=== PATIENT | female | born 1970 | race Caucasian/White ===

== ENCOUNTER → 2017-08-19 | Outpatient (CLI) | payer MEDICAID | END | disposition home or self-care (01) | LOC: LABWHC1 17:12 | PROVIDERS: ATTEND Otolaryngology | DX: E03.9 Hypothyroidism, unspecified (principal) | CPT/HCPCS: 36415; 84439; 84443; 86376 ==

== ENCOUNTER → 2018-04-01 | Outpatient (CLI) | payer MEDICAID ==
--- NOTE | 2018-04-01 17:10 | PN ---
PROGRESS NOTE DATE OF SERVICE: 04/01/2018 This patient is a 48-year-old lady has been followed in the sleep center for treatment of obstructive sleep apnea-hypopnea syndrome. Recently the patient had a polysomnogram and CPAP titration, and I discussed the results of her sleep studies with the patient in detail. Subsequently she was started on treatment with CPAP and today is her first visit on CPAP. Recommended CPAP pressure is 9 cm of water, but the patient has difficulties with exhalation to the nasal pillow mask. I checked her CPAP unit. CPAP pressure is 9 cm of water. Usage is 10/29 days, but she never was able to use it for more than 4 hours. Average usage is only 1.3 hours. Leak is 32 L/minute; at the same time, apnea-hypopnea index is only 0.3, which is perfect. Marshall Sleepiness Scale today 14. MEDICATIONS: Levothyroxine. PHYSICAL EXAMINATION: GENERAL: Patient in no distress. VITAL SIGNS: BP 128/72, HR 80, RR 16, height 5 feet 6 inches, weight 217, BMI 35, temperature 98.2, oxygen saturation at room air 100%. HEENT: PERRLA, EOMI. Evaluation of oropharynx showed tongue protrudes midline; low position of soft palate. NECK: Supple. No JVD. Thyroid is not palpable. LUNGS: Clear to percussion and to auscultation. Good air exchange. No wheezing or rhonchi. HEART: S1, S2 regular. No murmurs, gallops or rubs. ABDOMEN: Obese. EXTREMITIES : No clubbing or cyanosis. SCRIPT DEVELOPER: Awake, alert, and oriented X3. Cranial nerves 2 to 7 intact. There is no fasciculation or atrophy. noted. No focal deficits observed. IMPRESSION: 1. Obstructive sleep apnea-hypopnea syndrome; apnea-hypopnea index 13.6, in REM sleep 67.7, under full control with CPAP at 9 cm of water, but patient has difficulties with exhalation through the machine. 2. Obesity. 3. Hypothyroidism. 4. History of vertigo. 5. Status post bilateral lower leg surgery for venous problems. 6. Status post rotator cuff surgery on the right side. 7. Status post section. PLAN: 1. I will adjust pressure in her CPAP unit down to 7 cm of water. 2. Patient has a chinstrap and she will try to use it every night. 3. I do not think that we should change the mask at the present time. She has nasal pillows. 4. Losing weight. 5. No driving if feeling any sleepiness. Thank you very much for allowing me to participate in the management of your patient. Sincerely, Kareem Kang MD, PhD, FAASM Diplomat of [employer] Drama Teacher of [facility] [place] MMODL / JOSUE: [id number] /
== END | disposition home or self-care (01) ==
LOC: SLEEP 15:51
PROVIDERS: ATTEND Internal Medicine
DX: G47.33 Obstructive sleep apnea (adult) (pediatric) (principal); E66.9 Obesity, unspecified; E78.5 Hyperlipidemia, unspecified; R42 Dizziness and giddiness; Z98.890 Other specified postprocedural states; Z99.89 Dependence on other enabling machines and devices; Z68.35 Body mass index [BMI] 35.0-35.9, adult; Z79.899 Other long term (current) drug therapy

== ENCOUNTER 2018-09-10 01:51 | Emergency (ER) | payer MEDICAID ==
[2018-09-10 01:58] VITALS: RESP 16; TEMP 98.3
[2018-09-10 02:54] LABS: Basophils % (A) 0 %; Eosinophils # (A) 0.2 k/uL (0-0.7); Eosinophils % (A) 2 %; HCT 46.2 % (34.0-46.0); HGB 15.2 gm/dL (11.4-16.0); Lymphocytes # (A) 2.7 k/uL (1.0-4.8); Lymphocytes % (A) 27 %; MCH 29.3 pg (25.0-35.0); MCHC 32.9 g/dL (31.0-37.0); MCV 89.1 fL (80.0-100.0); Mean Platelet Volume 6.7; Monocytes # (A) 0.4 k/uL (0-1.0); Monocytes % (A) 4 %; Neutrophils # (A) 6.5 k/uL (1.3-7.7); Neutrophils % (A) 65 %; Platelet Count 397 k/uL (150-450); RBC 5.19 m/uL (3.80-5.40); RDW 13.3 % (11.5-15.5); WBC 9.9 k/uL (3.8-10.6)
[2018-09-10 03:05] LABS: Anion Gap 10 mmol/L; Blood Urea Nitrogen 12 mg/dL (7-17); Calcium 10.2 mg/dL (8.4-10.2); Carbon Dioxide 27 mmol/L (22-30); Chloride 101 mmol/L (98-107); Glucose 89 mg/dL (74-99); Potassium 4.4 mmol/L (3.5-5.1); Sodium 138 mmol/L (137-145)
--- NOTE | 2018-09-10 03:51 | ED ---
Extremity Problem HPI - General Chief complaint: Extremity Problem,Nontraumatic Stated complaint: Calf Pain Time Seen by Provider: 09/10/18 02:11 Source: patient Mode of arrival: ambulatory Limitations: no limitations - History of Present Illness MD Complaint: extremity pain Onset/Timin -: days(s) Location: left, lower extremity History of Same: No -: Yes myalgia Radiation: none Quality: aching Consistency: constant Improves with: nothing Worsens with: other (Tightening her calf) Associated Symptoms: denies other symptoms - Related Data Home Medications Medication Instructions Recorded Confirmed Furosemide [Lasix] 10 mg PO DAILY 04/26/16 04/26/16 Phentermine HCl [Adipex-P] 37.5 mg PO QAM 04/26/16 04/26/16 Previous Rx's Medication Instructions Recorded Cephalexin [Keflex] 500 mg PO Q6HR #36 cap 04/26/16 Cyclobenzaprine [Flexeril] 10 mg PO TID #15 tab 09/10/18 Allergies Allergy/AdvReac Type Severity Reaction Status Date / Time Iodinated Contrast- Oral and Allergy Swelling Verified 09/10/18 01:58 IV Dye [Iodinated Contrast Media - IV Dye] iodine Allergy Swelling Verified 09/10/18 01:58 latex Allergy Rash/Hives Verified 09/10/18 01:58 phenobarbital Allergy Unknown Verified 09/10/18 01:58 Review of Systems ROS Statement: Those systems with pertinent positive or pertinent negative responses have been documented in the HPI. ROS Other: All systems not noted in ROS Statement are negative. Constitutional: Denies: fever, chills, weakness Respiratory: Denies: cough, dyspnea Cardiovascular: Denies: chest pain, palpitations, edema, syncope Gastrointestinal: Denies: abdominal pain Musculoskeletal: Reports: as per HPI, myalgia Skin: Denies: rash Neurological: Denies: weakness, numbness, paresthesias Past Medical History Past Medical History: No Reported History Additional Past Medical History / Comment(s): HX OF SEIZUREA APPROX. 38 YRS AGO (NO MEDS), ENVIRONMENTAL ALLERGIES, HX OF GRAVES DISEASE & HASHIMOTOS-MONITORED BY DR. HE. , STATES IRREGULAR MENSTRUAL PERIODS- MAY HAVE SEVERAL SMALL PERIODS IN A MONTH. History of Any Multi-Drug Resistant Organisms: None Reported Past Surgical History: Section Additional Past Surgical History / Comment(s): NOVASURE., rotator cuff right Past Anesthesia/Blood Transfusion Reactions: Motion Sickness, Postoperative Nausea & Vomiting (PONV) Additional Past Anesthesia/Blood Transfusion Reaction / Comment(s): VERTIGO Past Psychological History: No Psychological Hx Reported Smoking Status: Heavy tobacco smoker Past Alcohol Use History: Rare Past Drug Use History: None Reported - Past Family History Father Family Medical History: Deep Vein Thrombosis (DVT) General Exam Limitations: no limitations General appearance: alert, in no apparent distress Respiratory exam: Present: normal lung sounds bilaterally. Absent: respiratory distress, wheezes, rales, rhonchi, stridor Cardiovascular Exam: Present: regular rate, normal rhythm, normal heart sounds. Absent: systolic murmur, diastolic murmur, rubs, gallop Extremities exam: Present: normal inspection, full ROM, tenderness, normal capillary refill, calf tenderness. Absent: pedal edema Back exam: Present: normal inspection. Absent: CVA tenderness (R), CVA tenderness (L) Skin exam: Present: warm, dry, intact, normal color. Absent: rash Course Vital Signs 09/10/18 01:56 Temperature 98.3 F Pulse Rate 81 Respiratory 16 Rate Blood Pressure 136/80 O2 Sat by Pulse 100 Oximetry Medical Decision Making - Lab Data Result diagrams: 09/10/18 02:46 09/10/18 02:46 Lab Results 09/10/18 09/10/18 09/10/18 Range/Units 02:46 02:46 02:46 WBC 9.9 (3.8-10.6) k/uL RBC 5.19 (3.80-5.40) m/uL Hgb 15.2 (11.4-16.0) gm/dL Hct 46.2 H (34.0-46.0) % MCV 89.1 (80.0-100.0) fL MCH 29.3 (25.0-35.0) pg MCHC 32.9 (31.0-37.0) g/dL RDW 13.3 (11.5-15.5) % Plt Count 397 (150-450) k/uL Neutrophils % 65 % Lymphocytes % 27 % Monocytes % 4 % Eosinophils % 2 % Basophils % 0 % Neutrophils # 6.5 (1.3-7.7) k/uL Lymphocytes # 2.7 (1.0-4.8) k/uL Monocytes # 0.4 (0-1.0) k/uL Eosinophils # 0.2 (0-0.7) k/uL Basophils # 0.0 (0-0.2) k/uL D-Dimer 0.57 (<0.60) mg/L FEU Sodium 138 (137-145) mmol/L Potassium 4.4 (3.5-5.1) mmol/L Chloride 101 (98-107) mmol/L Carbon Dioxide 27 (22-30) mmol/L Anion Gap 10 mmol/L BUN 12 (7-17) mg/dL Creatinine 0.65 (0.52-1.04) mg/dL Est GFR (CKD-EPI)AfAm >90 (>60 ml/min/1.73 sqM) Est GFR (CKD-EPI)NonAf >90 (>60 ml/min/1.73 sqM) Glucose 89 (74-99) mg/dL Calcium 10.2 (8.4-10.2) mg/dL Disposition Clinical Impression: Muscle strain Disposition: HOME SELF-CARE Condition: Good Instructions: Muscle Strain (ED) Prescriptions: Cyclobenzaprine [Flexeril] 10 mg PO TID #15 tab Is patient prescribed a controlled substance at d/c from ED?: No Referrals: Sal He DO [Primary Care Provider] - 1-2 days
[2018-09-10 04:11] VITALS: BP 138/83; PULSE 75
== END 2018-09-10 04:05 | disposition home or self-care (01) ==
LOC: EC 01:51
DX: S86.912A Strain of unspecified muscle(s) and tendon(s) at lower leg level, left leg, initial encounter (principal); F17.200 Nicotine dependence, unspecified, uncomplicated; Z79.899 Other long term (current) drug therapy; Z91.041 Radiographic dye allergy status; Z91.048 Other nonmedicinal substance allergy status; Z91.040 Latex allergy status; Z88.8 Allergy status to other drugs, medicaments and biological substances; X58.XXXA Exposure to other specified factors, initial encounter
CPT/HCPCS: 36415; 80048; 85025; 85379; 99283

== ENCOUNTER → 2018-09-10 | Outpatient (CLI) | payer MEDICAID ==
--- NOTE | 2018-09-10 15:08 | US ---
EXAMINATION TYPE: US venous doppler duplex LE LT DATE OF EXAM: 09/10/2018 2:53 PM COMPARISON: NONE CLINICAL HISTORY: R/O DVT. SIDE PERFORMED: Left TECHNIQUE: The lower extremity deep venous system is examined utilizing real time linear array sonog julissa with graded compression, doppler sonography and color-flow sonography. VESSELS IMAGED: External Iliac Vein (EIV) Common Femoral Vein Deep Femoral Vein Greater Saphenous Vein * Femoral Vein Popliteal Vein Small Saphenous Vein * Proximal Calf Veins (* superficial vessels) Left Leg: Negative for DVT Patient has superficial clot posterior left calf at area of pain. IMPRESSION: 1. Left lower extremity ultrasound negative for deep venous thrombosis. 2. Superficial thrombophlebitis is present on the left lower extremity within the calf level of the p atient's pain.
== END ==
LOC: RADUSWWP 14:25
PROVIDERS: ATTEND Family Medicine
DX: I80.02 Phlebitis and thrombophlebitis of superficial vessels of left lower extremity (principal)

== ENCOUNTER → 2019-12-01 | Outpatient (CLI) | payer MEDICAID ==
[2019-12-01 09:28] LABS: HCT 45.4 % (34.0-46.0); HGB 15.1 gm/dL (11.4-16.0); MCH 29.6 pg (25.0-35.0); MCHC 33.2 g/dL (31.0-37.0); MCV 89.2 fL (80.0-100.0); Mean Platelet Volume 7.8; Platelet Count 474 k/uL (150-450); RBC 5.09 m/uL (3.80-5.40); RDW 12.9 % (11.5-15.5); WBC 8.9 k/uL (3.8-10.6)
[2019-12-01 17:51] LABS: African American GFR (CKD) 100.3 (60.0-200.0); Albumin 4.8 g/dL (3.80-4.90); Albumin/Globulin Ratio 2.29 (1.60-3.17); Anion Gap 8.5 mmol/L (4.00-12.00); BUN/Creat Ratio 12.5 Ratio (12.00-20.00); Calcium 9.8 mg/dL (8.7-10.3); Carbon Dioxide 26.5 mmol/L (21.6-31.8); Chol/HDL Ratio 3.56; Globulin 2.1 g/dL (1.6-3.3); Non-African American GFR(CKD) 86.6 (60.0-200.0); Total Bilirubin 0.4 mg/dL (0.3-1.2); Total Protein 6.9 g/dL (6.2-8.2)
[2019-12-01 18:00] LABS: T4, Free (Free Thyroxine) 1.2 ng/dL (0.80-1.80)
== END | disposition home or self-care (01) ==
LOC: LABWHC1 08:40
PROVIDERS: ATTEND Family Medicine
DX: Z00.00 Encounter for general adult medical examination without abnormal findings (principal); E03.9 Hypothyroidism, unspecified
CPT/HCPCS: 36415; 80053; 80061; 84439; 84443; 85027

== ENCOUNTER → 2020-01-02 | Outpatient (CLI) | payer MEDICAID ==
--- NOTE | 2020-01-02 15:54 | US ---
EXAMINATION TYPE: US venous doppler duplex LE RT DATE OF EXAM: 01/02/2020 3:32 PM COMPARISON: NONE CLINICAL HISTORY: M79.671,M19.071,M79.672,M19.072,M79.661. SIDE PERFORMED: Right TECHNIQUE: The lower extremity deep venous system is examined utilizing real time linear array sonog julissa with graded compression, doppler sonography and color-flow sonography. VESSELS IMAGED: External Iliac Vein (EIV) Common Femoral Vein Deep Femoral Vein Greater Saphenous Vein * Femoral Vein Popliteal Vein Small Saphenous Vein * Proximal Calf Veins (* superficial vessels) Grayscale, color doppler, spectral doppler imaging performed of the deep veins of the right lower ext remity. There is normal flow, compressibility, vascular waveforms. Right Leg: Negative for DVT IMPRESSION: No sonographic evidence of deep venous thrombosis within the right lower extremity.
== END | disposition home or self-care (01) ==
LOC: RADUSWWP 15:10
PROVIDERS: ATTEND Orthopaedic Surgery
DX: M19.071 Primary osteoarthritis, right ankle and foot (principal); I80.9 Phlebitis and thrombophlebitis of unspecified site; M79.672 Pain in left foot; M19.072 Primary osteoarthritis, left ankle and foot; R60.9 Edema, unspecified

== ENCOUNTER → 2020-01-25 | Outpatient (CLI) | payer MEDICAID ==
--- NOTE | 2020-01-25 10:16 | MR ---
EXAMINATION TYPE: MR foot LT wo con DATE OF EXAM: 01/25/2020 COMPARISON: None HISTORY: pain left foot TECHNIQUE: Multiplanar, multisequence images of the left foot were acquired without intravenous contrast. FINDINGS: A few subchondral cysts are seen of the tarsal bones that are subcentimeter and there is very mild marah ne marrow edema of the distal first metatarsal head at the intertarsal phalangeal joint, likely secon ganesh to arthropathy and subchondral cystic change as there is opposing surface sclerosis and very sma ll marginal osteophytes. No other bone marrow edema is seen. There is susceptibility artifact medial to the fifth metatarsophalangeal joint. There is thickening and questionable discontinuity focally of the peroneus brevis just distal to the ankle joint and the short segment of 6 mm. Feel that he is not optimized for evaluation. The flexor t endons and extensor tendons are grossly unremarkable. Ankle mortise maintains normal alignment. Sinus tarsus is unremarkable. Osteophytic spurring is seen of the tarsal bones. The anterior talofibular ligament, posterior talofibular ligament and deltoid li gament are grossly intact. There is a very small tibiotalar joint effusion. The Achilles tendon and p lantar fascia are intact and unremarkable. IMPRESSION: 1. Mild midfoot and forefoot arthropathy with resultant very mild bone marrow edema in distal first m etatarsal head and she likely degenerative osseous cysts. 2. Susceptibility artifact is seen medial to the fifth metatarsophalangeal joint and may be postsurgi rodriguez although correlation with radiographs and prior surgical history are recommended as this alternat ively could represent foreign body. No radiographs for comparison available. 3. At least tendinosis and question short segment split tear of the peroneus brevis just distal to th e ankle joint. 4. Small tibiotalar joint effusion.
== END | disposition home or self-care (01) ==
LOC: RADMRIMAIN 06:00
PROVIDERS: ATTEND Orthopaedic Surgery
DX: M19.072 Primary osteoarthritis, left ankle and foot (principal); M19.071 Primary osteoarthritis, right ankle and foot; M89.9 Disorder of bone, unspecified

== ENCOUNTER → 2020-02-03 | Outpatient (CLI) | payer MEDICAID ==
--- NOTE | 2020-02-03 11:01 | MM ---
Reason for exam: screening (asymptomatic). Last mammogram was performed 9 years and 6 months ago. History: Took hormonal contraceptives for 13 years. Physical Findings: A clinical breast exam by your physician is recommended on an annual basis and results should be correlated with mammographic findings. MG 3D Screening Mammo W/Cad Bilateral CC and MLO view(s) were taken. Prior study comparison: August 15, 2010, bilateral digital screening mammogram. There are scattered fibroglandular densities. Benign appearing bilateral calcifications. No suspicious abnormality. ASSESSMENT: Benign, BI-RAD 2 RECOMMENDATION: Routine screening mammogram of both breasts in 1 year.
== END | disposition home or self-care (01) ==
LOC: RADMAMWWP 08:26
PROVIDERS: ATTEND Family Medicine
DX: Z12.31 Encounter for screening mammogram for malignant neoplasm of breast (principal)
CPT/HCPCS: 77063; 77067

== ENCOUNTER → 2020-07-10 | Outpatient (CLI) | payer MEDICAID ==
--- NOTE | 2020-07-10 08:32 | US ---
EXAMINATION TYPE: US abdomen complete DATE OF EXAM: 07/10/2020 COMPARISON: NONE CLINICAL HISTORY: M54.5 LOW BACK PAIN. Lower back pain exam limited due to body habitus. EXAM MEASUREMENTS: Liver Length: 13.4 cm Gallbladder Wall: .4 cm CBD: .4 cm Spleen: 11.6 cm Right Kidney: 11.8 x 5.3 x 4.4 cm Left Kidney: 10.3 x 4.2 x 4.1 cm Pancreas: Obscured by bowel gas Liver: Limited increased attentuation Gallbladder: Stones visualized Evidence for sonographic Reynaga's sign: No CBD: wnl Spleen: wnl Right Kidney: wnl Left Kidney: wnl Upper IVC: wnl Abd Aorta: wnl IMPRESSION: 1. Nonspecific increased attenuation to the liver can be seen with hepatic steatosis or hepatitis. Co rrelate clinically. 2. Cholelithiasis with mild gallbladder wall thickening can be associated with cholecystitis correlat e clinically. No biliary obstruction.
== END | disposition home or self-care (01) ==
LOC: RADUSWWP 07:49
PROVIDERS: ATTEND Family Medicine
DX: K80.20 Calculus of gallbladder without cholecystitis without obstruction (principal); K82.8 Other specified diseases of gallbladder
CPT/HCPCS: 76700

== ENCOUNTER 2020-09-05 09:04 | Day surgery (SDC) | payer MEDICAID ==
[2020-09-03 15:25] VITALS: BMI 36.0
--- NOTE | 2020-09-05 06:26 | P.GSHP ---
History of Present Illness H&P Date: 09/05/20 CHIEF COMPLAINT: Colon screen HISTORY OF PRESENT ILLNESS: The patient is a 50-year-old female who presents for colon screen. Lower endoscopy was offered for further evaluation and management. PAST MEDICAL HISTORY: Please see list. PAST SURGICAL HISTORY: Please see list. MEDICATIONS: Please see list. ALLERGIES: Please see list. SOCIAL HISTORY: No illicit drug use FAMILY HISTORY: No reports of Crohn disease or ulcerative colitis. REVIEW OF ORGAN SYSTEMS: CONSTITUTIONAL: No reports of fevers or chills. PHYSICAL EXAM: VITAL SIGNS: Stable GENERAL: Well-developed pleasant in no acute distress. HEENT: No scleral icterus. Extraocular movements grossly intact. Moist buccal mucosa. NECK: Supple without lymphadenopathy. CHEST: Unlabored respirations. Equal bilateral excursions. CARDIOVASCULAR: Regular rate and rhythm. Distal 2+ pulses. ABDOMEN: Soft, nontender, nondistended. MUSCULOSKELETAL: No clubbing, cyanosis, or edema. ASSESSMENT: 1. Colon screen. PLAN: 1. Recommend proceeding with a lower endoscopy Past Medical History Past Medical History: No Reported History Additional Past Medical History / Comment(s): currently having nausea and loose stools,HX OF SEIZURE APPROX. 38 YRS AGO (NO MEDS), ENVIRONMENTAL ALLERGIES, HX OF GRAVES DISEASE & HASHIMOTOS-MONITORED BY DR. HE. History of Any Multi-Drug Resistant Organisms: None Reported Past Surgical History: Section, Orthopedic Surgery, Uterine Ablation Additional Past Surgical History / Comment(s): NOVASURE., rotator cuff right Past Anesthesia/Blood Transfusion Reactions: Motion Sickness, Postoperative Nausea & Vomiting (PONV) Additional Past Anesthesia/Blood Transfusion Reaction / Comment(s): VERTIGO Smoking Status: Current every day smoker - Past Family History Mother Family Medical History: COPD, CVA/TIA, Hypertension Father Family Medical History: Deep Vein Thrombosis (DVT) Additional Family Medical History / Comment(s): irreg heartrate Medications and Allergies Home Medications Medication Instructions Recorded Confirmed Type Crestor (Unk Dose) 1 tab PO HS 09/03/20 09/03/20 History Levothyroxine Sodium 112 mcg PO QAM 09/03/20 09/03/20 History Allergies Allergy/AdvReac Type Severity Reaction Status Date / Time Iodinated Contrast Media Allergy Swelling Verified 09/03/20 15:19 [Iodinated Contrast Media - IV Dye] iodine Allergy Swelling Verified 09/03/20 15:19 latex Allergy Rash/Hives Verified 09/03/20 15:19 phenobarbital Allergy Unknown Verified 09/03/20 15:19
[~2020-09-05 09:04] MED LIST: LACTATED RINGERS 1,000 ML IV SCH; LIDOCAINE 1% (10MG/ML) FOR IV START INTRADERMA PRN
[2020-09-05] MEDS ORDERED: PROPOFOL 10 MG/ML 20 ML VIAL IV ONE (09:51)
[2020-09-05 09:53] VITALS: RESP 16; TEMP 98.4
[2020-09-05 10:08] LABS: Basophils # (A) 0.1 k/uL (0-0.2); Basophils % (A) 1 %; Eosinophils # (A) 0.1 k/uL (0-0.7); Eosinophils % (A) 2 %; HCT 46.6 % (34.0-46.0); HGB 15.6 gm/dL (11.4-16.0); Lymphocytes # (A) 1.9 k/uL (1.0-4.8); Lymphocytes % (A) 33 %; MCH 30.1 pg (25.0-35.0); MCHC 33.5 g/dL (31.0-37.0); Mean Platelet Volume 7.5; Monocytes # (A) 0.3 k/uL (0-1.0); Monocytes % (A) 5 %; Neutrophils # (A) 3.3 k/uL (1.3-7.7); Neutrophils % (A) 58 %; Platelet Count 363 k/uL (150-450); RBC 5.18 m/uL (3.80-5.40); RDW 13.4 % (11.5-15.5); WBC 5.6 k/uL (3.8-10.6)
--- NOTE | 2020-09-05 10:17 | P.PCN ---
Date of Procedure: 09/05/20 Description of Procedure: PREOPERATIVE DIAGNOSIS: Colonoscopy screening, first POSTOPERATIVE DIAGNOSIS: Colonoscopy screening, first OPERATION: Colonoscopy to the ascending colon SURGEON: Judy Merrill MD. ANESTHESIA: MAC. INDICATIONS: The patient is a 50-year-old female who presents for her first colonoscopy screening. Benefits and risks were described and informed consent was obtained. DESCRIPTION OF PROCEDURE: The patient had undergone Suprep. She had been brought into the operating room and laid in the left lateral decubitus position. After adequate intravenous sedation, the rectum was examined with 2% lidocaine jelly. No external hemorrhoids were encountered. The rectal tone was within normal limits. No lesions were palpated in the rectal vault. An Olympus colonoscope was advanced to the ascending colon highly redundant colon. Despite abdominal pressure, the scope was limited to the proximal ascending colon without clear visualization of the base of the cecum. The prep was excellent. No scattered diverticulosis was encountered. No colonic polyps were found. No evidence of focal colitis was found. Retroflexion of the scope demonstrated grade 1 internal hemorrhoids without active bleeding or inflammation. The colon was desufflated. The patient had tolerated the procedure well. Withdrawal time was over 6 minutes. FINDINGS: Aronchick preparation quality scale 1 (1-5) Internal hemorrhoids, grade 1 No external prolapsed hemorrhoids. No arteriovenous malformations. No adenomatous polyps. No focal colitis. Colonoscope advanced to the ascending colon without clear visualization of the base of the cecum RECOMMENDATIONS: Will need barium enema for visualization of cecum, otherwise repeat colonoscopy 5 years, 2024 Plan - Discharge Summary Discharge Rx Participant: No New Discharge Prescriptions: Continue Levothyroxine Sodium 112 mcg PO QAM Crestor (Unk Dose) 1 tab PO HS Discharge Medication List Crestor (Unk Dose) 1 tab PO HS 09/03/20 [History] Levothyroxine Sodium 112 mcg PO QAM 09/03/20 [History] Follow up Appointment(s)/Referral(s): Judy Merrill MD [STAFF PHYSICIAN] - 09/18/20 Patient Instructions/Handouts: Colonoscopy (DC) Activity/Diet/Wound Care/Special Instructions: Recommend barium enema for complete assessment of cecum. Otherwise repeat colonoscopy 2024 Discharge Disposition: HOME SELF-CARE
[2020-09-05 10:52] VITALS: BP 123/83; PULSE 73
--- NOTE | 2020-09-05 13:29 | FL ---
EXAMINATION TYPE: FL barium enema DATE OF EXAM: 09/05/2020 COMPARISON: NONE HISTORY: Incomplete colonoscopy TECHNIQUE: A double contrast barium enema study is performed. FINDINGS: Inventory And Pricing Associate view of the abdomen shows overall non-obstructive bowel gas pattern. Some mobile filling defects present within the transverse colon are thought to represent retained sto ol. Cecum shows normal distention and contrast filled image, limited coating on early images, subopti mal distention coated image No evidence of any mass or polyp, obstructing or constricting lesion throughout the colon. No signif icant diverticular disease is noted. Appendix was filled and appeared normal. Diverticula noted in the sigmoid colon The minutes 40 seconds fluoroscopy time, 29 images document the procedure IMPRESSION: Diverticulosis. Some limitations to the exam.
== END 2020-09-05 12:09 | disposition home or self-care (01) ==
LOC: ORWHC2ENDO 09:04
PROVIDERS: ATTEND Surgery Plastic and Reconstructive Surgery
DX: Z12.11 Encounter for screening for malignant neoplasm of colon (principal); K64.0 First degree hemorrhoids; E78.5 Hyperlipidemia, unspecified; E06.3 Autoimmune thyroiditis; K21.9 Gastro-esophageal reflux disease without esophagitis; E05.00 Thyrotoxicosis with diffuse goiter without thyrotoxic crisis or storm; F17.200 Nicotine dependence, unspecified, uncomplicated; Z86.69 Personal history of other diseases of the nervous system and sense organs; Z91.041 Radiographic dye allergy status; Z91.040 Latex allergy status; Z88.8 Allergy status to other drugs, medicaments and biological substances; Z79.890 Hormone replacement therapy; Z79.899 Other long term (current) drug therapy; Z98.891 History of uterine scar from previous surgery; Z98.890 Other specified postprocedural states; Z82.49 Family history of ischemic heart disease and other diseases of the circulatory system; Z82.5 Family history of asthma and other chronic lower respiratory diseases
CPT/HCPCS: 81025; 85025; 74270; J2704; G0121

== ENCOUNTER 2020-09-07 09:33 | Day surgery (SDC) | payer MEDICAID ==
[2020-09-03 14:33] VITALS: BMI 36.0
[~2020-09-07 09:33] MED LIST changes: +DEXAMETHASONE SOD PHOSPHATE 10 MG/ML 1 ML VIAL IV ONE; +HEPARIN SODIUM,PORCINE 5,000 UNIT/ML 1 ML VIAL SQ ONE; +HYDROmorphone 0.5 MG/0.5 ML SYRINGE IVP PRN; +ONDANSETRON 4 MG/2 ML VIAL IVP ONE; +SCOPOLAMINE 1.5MG/72HR PATCH TRANSDERM ONE
[2020-09-07] MEDS ORDERED: ACETAMINOPHEN TAB 500 MG TAB PO STA (10:23)
[2020-09-07] MEDS ORDERED: SCOPOLAMINE 1.5MG/72HR PATCH TRANSDERM STA (10:23)
[2020-09-07] MEDS ORDERED: GABAPENTIN 300 MG CAP PO STA (10:23)
--- NOTE | 2020-09-07 10:24 | P.GSHP ---
History of Present Illness H&P Date: 09/07/20 CHIEF COMPLAINT: Cholecystitis HISTORY OF PRESENT ILLNESS: The patient is a 50-year-old female who presents with history of epigastric including right upper quadrant abdominal pain. She underwent diagnostic studies for her gallbladder. Separately her clinical picture was consistent with cholecystitis. Now she presents for surgical intervention. PAST MEDICAL HISTORY: Please see list PAST SURGICAL HISTORY: Please see list MEDICATIONS: Please see list ALLERGIES: Please see list SOCIAL HISTORY: Please see list FAMILY HISTORY: Please see list REVIEW OF ORGAN SYSTEMS: CONSTITUTIONAL: No reports of fevers or chills. HEENT: Denies any troubles with the vision or hearing. ENDOCRINE: Has hypothyroidism. No diabetes. RESPIRATORY: No recent pneumonias. CARDIOVASCULAR: Denies chest pain or palpitations GI: No blood in stools or constipation. MUSCULOSKELETAL: Has occasional joint pain including back pain. NEURO: No seizure disorders or headaches. No recent stroke. PSYCH: No depression or suicidal ideation. GENITOURINARY: No active blood in urine. No urinary hesitancy. HEMATOLOGIC: No personal or family history of DVTs or pulmonary emboli. SKIN: No skin cancer. PHYSICAL EXAM: VITAL SIGNS: Afebrile vital signs stable GENERAL: Well-developed pleasant in no acute distress. HEENT: No scleral icterus. Extraocular movements grossly intact. Moist buccal mucosa. NECK: Supple without lymphadenopathy. CHEST: Unlabored respirations. Equal bilateral excursions. CARDIOVASCULAR: Regular rate regular rhythm rhythm. Distal 2+ pulses. ABDOMEN: Soft, nondistended. Tender along the epigastrium and right upper quadrant. MUSCULOSKELETAL: No clubbing, cyanosis, or edema. NEURO: Cranial nerves II to XII within normal limits. No focal or lateralizing signs. PSYCH: Alert and oriented to person, place and time. SKIN: Well-perfused good skin turgor. ASSESSMENT: 1. Epigastric and right upper quadrant abdominal pain 2. Chronic cholecystitis PLAN: 1. Will need a robotic cholecystectomy possible open. Benefits and risks were described. 2. Heparin for DVT prophylaxis 5000 units. 3. Antibiotic prophylaxis. Past Medical History Past Medical History: No Reported History Additional Past Medical History / Comment(s): currently having nausea and loose stools,HX OF SEIZURE APPROX. 38 YRS AGO (NO MEDS), ENVIRONMENTAL ALLERGIES, HX OF GRAVES DISEASE & HASHIMOTOS-MONITORED BY DR. HE. History of Any Multi-Drug Resistant Organisms: None Reported Past Surgical History: Section, Orthopedic Surgery, Uterine Ablation Additional Past Surgical History / Comment(s): NOVASURE., rotator cuff right Past Anesthesia/Blood Transfusion Reactions: Motion Sickness, Postoperative Nausea & Vomiting (PONV) Additional Past Anesthesia/Blood Transfusion Reaction / Comment(s): VERTIGO Smoking Status: Current every day smoker - Past Family History Mother Family Medical History: COPD, CVA/TIA, Hypertension Father Family Medical History: Deep Vein Thrombosis (DVT) Additional Family Medical History / Comment(s): irreg heartrate Medications and Allergies Home Medications Medication Instructions Recorded Confirmed Type Crestor (Unk Dose) 1 tab PO HS 09/03/20 09/07/20 History Levothyroxine Sodium 112 mcg PO QAM 09/03/20 09/07/20 History Allergies Allergy/AdvReac Type Severity Reaction Status Date / Time Iodinated Contrast Media Allergy Swelling Verified 09/07/20 10:18 [Iodinated Contrast Media - IV Dye] iodine Allergy Swelling Verified 09/07/20 10:18 latex Allergy Rash/Hives Verified 09/07/20 10:18 phenobarbital Allergy Unknown Verified 09/07/20 10:18 Surgical - Exam Vital Signs Temp Pulse Resp BP Pulse Ox 97.6 F 84 16 158/76 98 09/07/20 10:00 09/07/20 10:00 09/07/20 10:00 09/07/20 10:00 09/07/20 10:00
[2020-09-07] MEDS ORDERED: NEOSTIGMINE 1 MG/ML 10 ML VIAL ONE (10:40)
[2020-09-07] MEDS ORDERED: PROPOFOL 10 MG/ML 20 ML VIAL IV ONE (10:40)
[2020-09-07] MEDS ORDERED: LIDOCAINE 1% INJ 10MG/ML (20 ML MDV) ONE (10:40)
[2020-09-07] MEDS ORDERED: diphenhydrAMINE 50 MG/ML 1 ML VIAL ONE (10:40)
[2020-09-07] MEDS ORDERED: MIDAZOLAM 2 MG/2 ML VIAL ONE (10:40)
[2020-09-07] MEDS ORDERED: KETOROLAC 15 MG/ML 1 ML VIAL ONE (10:40)
[2020-09-07] MEDS ORDERED: SUCCINYLCHOLINE CHLORIDE 100 MG/5 ML SYR IV ONE (10:40)
[2020-09-07] MEDS ORDERED: ROCURONIUM 10 MG/ML (10 ML VIAL) IV ONE (10:40)
[2020-09-07] MEDS ORDERED: GLYCOPYRROLATE 0.2 MG/ML 2 ML VIAL ONE (10:40)
[2020-09-07] MEDS ORDERED: HYDROmorphone (PF) 1 MG/ML ONE (10:40)
[2020-09-07] MEDS ORDERED: fentaNYL (PF) 50 MCG/ML 2 ML AMP ONE (10:40)
[2020-09-07] MEDS ORDERED: BUPIVACAINE (PF) 0.25% 30 ML VIAL SQ ONE (11:02)
[2020-09-07 12:02] VITALS: TEMP 97.8
--- NOTE | 2020-09-07 12:08 | P.OP ---
Date of Procedure: 09/07/20 Description of Procedure: SURGEON: JUDY MERRILL MD PREOPERATIVE DIAGNOSES: 1. Symptomatic gallstone 2. Right upper quadrant abdominal pain 3. Hypothyroidism 4. Morbid obesity due to excess calories, BMI of 40 POSTOPERATIVE DIAGNOSES: 1. Symptomatic gallstone 2. Right upper quadrant abdominal pain 3. Hypothyroidism 4. Morbid obesity due to excess calories, BMI of 40 5. Peritoneal adhesions, right upper quadrant OPERATION: 1. Robotic-assisted da Joana Xi laparoscopic lysis of adhesions 2. Robotic-assisted da Joana Xi laparoscopic cholecystectomy, multiport with FIREFLY ESTIMATED BLOOD LOSS: 5 mL. SPECIMENS REMOVED: Gallbladder. COMPLICATIONS: None. OPERATIVE FINDINGS: 1. Moderate scarring along right upper quadrant of omentum to abdominal wall requiring and some lysis of adhesions 2. Large gallstone over 2 cm INDICATIONS: The patient is a 50-year-old female who presents with symptomatic gallstones. Robotic assisted laparoscopic approach was described. Benefits and risks of the procedure including but not limited to bleeding, infection, injury to the biliary tree was described. Informed consent was obtained. DESCRIPTION OF PROCEDURE: Patient was brought to the operating room, placed in supine position. After general induction, the abdomen had been prepped and draped in standard sterile fashion. The robotic da Joana XI system was primed. After a timeout protocol was performed, the patient had been prepped and draped in standard sterile fashion. The patient was injected with indocyanine green. A 5 mm 0 degrees laparoscopic trocar entry was performed along the left upper quadrant. The abdomen insufflated to 15 mmHg pressure which was tolerated well. Diagnostic laparoscopy demonstrated no injury to bowel viscera or mesentery. The liver surface was unremarkable. Next, two 8 mm robotic ports were placed along the right upper abdomen. The camera 8-mm port was maintained along the epigastrium. Another 8 mm port was placed along the left upper abdominal wall after exchanging the 5 mm port. Please note that the ports were placed at least 10 to 15 cm away from the target anatomy of the gallbladder. The robot was docked along the left lateral abdomen. The patient was repositioned in reverse Trendelenburg position. Using a grasper for arm 3, a grasper for arm 4, including hook cautery for arm 1, the robotic system was docked and primed as described. Instruments were interchanged by the assistant reading teacher including hook cautery, Bovie cautery and clip appliers. I had sat at the console. Peritoneal adhesions were identified of omentum to the abdominal wall. Lysis of adhesions was performed using vessel sealer. Next attention was brought to the infundibulum and cystic structures. The infundibulum and cystic duct were dissected free from surrounding tissues. The cystic duct was isolated. FIREFLY was used to identify the cystic artery and cystic structures. A critical view of safety was obtained. Large PLASTIC clips were used throughout the entire case. Using a clip facer operator, 2 clips were placed at the junction of the infundibulum and cystic duct. The cystic duct was divided between clips. Next, the cystic artery was similarly clipped and cauterized. Electro-Bovie cautery was used to remove the gallbladder from the hepatic fossa. Hemostasis was checked and found to be adequate. The robot was undocked. I re-scrubbed into the case. Using a 10 mm Endo Catch bag via the left upper quadrant incision, the specimen was removed from the abdominal cavity. All pneumoperitoneum instruments were evacuated from the abdominal cavity. The incisions were reapproximated using 4-0 Monocryl in an interrupted subcuticular fashion. Fascial defects were less than 8 mm in size. Please note along the trocar sites, local anesthetic was placed as a field block prior to insertion of all instruments. Liquid glue was applied to the skin. At the end of the procedure needle, sponge, and instrument count had been verified correct by the marine engineering technicians. The patient was transferred to postanesthesia care unit in stable condition. Intraoperative films were shared with the patient's family. Plan - Discharge Summary Discharge Rx Participant: No New Discharge Prescriptions: New Acetaminophen Tab [Tylenol Tab] 1,000 mg PO Q6HR PRN #30 tablet PRN Reason: Pain Naproxen [Naprosyn] 250 mg PO TID PRN #30 tab PRN Reason: Pain Continue Levothyroxine Sodium 112 mcg PO QAM Crestor (Unk Dose) 1 tab PO HS Discharge Medication List Crestor (Unk Dose) 1 tab PO HS 09/03/20 [History] Levothyroxine Sodium 112 mcg PO QAM 09/03/20 [History] Acetaminophen Tab [Tylenol Tab] 1,000 mg PO Q6HR PRN #30 tablet 09/07/20 [Rx] Naproxen [Naprosyn] 250 mg PO TID PRN #30 tab 09/07/20 [Rx] Follow up Appointment(s)/Referral(s): Judy Merrill MD [STAFF PHYSICIAN] - 09/18/20 Patient Instructions/Handouts: *[facility] - Laparoscopic Cholecystectomy Discharge Instructions, *[facility] - (Anesthesia) Discharge Instructions Outpatient Surgery, *[facility] - Scopalamine Patch Instructions, *[facility] - Managing Your Pain After Surgery Without Opioids Activity/Diet/Wound Care/Special Instructions: No lifting over 10 pounds in 2 weeks until Sep 21. May shower. No bath tub soaks for two weeks until Sep 21 Diet as tolerated. Use Tylenol and ibuprofen/Aleve scheduled for the next 24-48 hours for best pain relief. Use ice along incisions for the today to prevent swelling. Discharge Disposition: HOME SELF-CARE
[2020-09-07] MEDS ORDERED: SIMETHICONE 80 MG CHEWABLE PO SCH (12:15)
[2020-09-07 13:09] VITALS: RESP 20
[2020-09-07 13:34] VITALS: BP 166/70; PULSE 64
== END 2020-09-07 14:13 | disposition home or self-care (01) ==
LOC: OR 09:33
PROVIDERS: ATTEND Surgery Plastic and Reconstructive Surgery
DX: K80.10 Calculus of gallbladder with chronic cholecystitis without obstruction (principal); E03.9 Hypothyroidism, unspecified; K66.0 Peritoneal adhesions (postprocedural) (postinfection); E66.01 Morbid (severe) obesity due to excess calories; Z68.41 Body mass index [BMI] 40.0-44.9, adult; E05.00 Thyrotoxicosis with diffuse goiter without thyrotoxic crisis or storm; E06.3 Autoimmune thyroiditis; F17.210 Nicotine dependence, cigarettes, uncomplicated; Z86.718 Personal history of other venous thrombosis and embolism; I49.9 Cardiac arrhythmia, unspecified; Z97.2 Presence of dental prosthetic device (complete) (partial); Z98.891 History of uterine scar from previous surgery; Z98.890 Other specified postprocedural states; Z79.890 Hormone replacement therapy; Z79.899 Other long term (current) drug therapy; Z82.49 Family history of ischemic heart disease and other diseases of the circulatory system; Z82.5 Family history of asthma and other chronic lower respiratory diseases; Z91.041 Radiographic dye allergy status; Z91.040 Latex allergy status; Z88.8 Allergy status to other drugs, medicaments and biological substances; Z91.048 Other nonmedicinal substance allergy status
CPT/HCPCS: 88304; 47563; J2250; J1200; J1644; J1100; J2710; J0690; J2405; J2001; J3010; J1170; J1885; J0330; J2704

== ENCOUNTER 2020-10-21 07:43 | Emergency (ER) | payer MEDICAID, OTHER ==
[2020-10-21 07:48] VITALS: TEMP 97.8
--- NOTE | 2020-10-21 08:11 | ED ---
General Adult HPI - General Chief complaint: Needlestick/Exposure Stated complaint: [facility] - needlestick Time Seen by Provider: 10/21/20 07:51 Source: patient, RN notes reviewed Mode of arrival: ambulatory Limitations: no limitations - History of Present Illness Initial comments: Patient is a pleasant 50-year-old female presenting to the emergency Department with abrasion to her right hand. Patient was changing the garbage at the hospital here when the stylette use for a chest tube abraded her right palm. Patient did wash the area thoroughly. Tetanus immune patient is up-to-date. Patient only has mild discomfort. No other area of injury or concern. - Related Data Home Medications Medication Instructions Recorded Confirmed Crestor (Unk Dose) 1 tab PO HS 09/03/20 09/07/20 Levothyroxine Sodium 112 mcg PO QAM 09/03/20 09/07/20 Previous Rx's Medication Instructions Recorded Acetaminophen Tab [Tylenol Tab] 1,000 mg PO Q6HR PRN #30 tablet 09/07/20 Naproxen [Naprosyn] 250 mg PO TID PRN #30 tab 09/07/20 Allergies Allergy/AdvReac Type Severity Reaction Status Date / Time Iodinated Contrast Media Allergy Swelling Verified 10/21/20 07:48 [Iodinated Contrast Media - IV Dye] iodine Allergy Swelling Verified 10/21/20 07:48 latex Allergy Rash/Hives Verified 10/21/20 07:48 phenobarbital Allergy Unknown Verified 10/21/20 07:48 Review of Systems ROS Statement: Those systems with pertinent positive or pertinent negative responses have been documented in the HPI. ROS Other: All systems not noted in ROS Statement are negative. Constitutional: Denies: fever Eyes: Denies: eye pain ENT: Denies: ear pain Respiratory: Denies: cough, dyspnea Cardiovascular: Denies: chest pain, palpitations Endocrine: Denies: fatigue Gastrointestinal: Denies: abdominal pain Genitourinary: Denies: dysuria Musculoskeletal: Denies: back pain Skin: Reports: as per HPI Past Medical History Past Medical History: Hyperlipidemia, Thyroid Disorder Additional Past Medical History / Comment(s): currently having nausea and loose stools,HX OF SEIZURE APPROX. 38 YRS AGO (NO MEDS), ENVIRONMENTAL ALLERGIES, HX OF GRAVES DISEASE & HASHIMOTOS-MONITORED BY DR. HE. History of Any Multi-Drug Resistant Organisms: None Reported Past Surgical History: Section, Cholecystectomy, Orthopedic Surgery, Uterine Ablation Additional Past Surgical History / Comment(s): NOVASURE., rotator cuff right Past Anesthesia/Blood Transfusion Reactions: Motion Sickness, Postoperative Nausea & Vomiting (PONV) Additional Past Anesthesia/Blood Transfusion Reaction / Comment(s): VERTIGO Past Psychological History: No Psychological Hx Reported Smoking Status: Current every day smoker Past Alcohol Use History: None Reported Past Drug Use History: None Reported - Past Family History Mother Family Medical History: COPD, CVA/TIA, Hypertension Father Family Medical History: Deep Vein Thrombosis (DVT) Additional Family Medical History / Comment(s): irreg heartrate General Exam Limitations: no limitations General appearance: alert, in no apparent distress Head exam: Present: normocephalic Eye exam: Present: normal appearance Respiratory exam: Present: normal lung sounds bilaterally Cardiovascular Exam: Present: regular rate, normal rhythm GI/Abdominal exam: Present: soft. Absent: tenderness Extremities exam: Present: normal inspection Neurological exam: Present: alert Psychiatric exam: Present: normal affect, normal mood Skin exam: Present: abrasion (Right palm near the thenar eminence with approximately 1 cm abrasion) Course Vital Signs 10/21/20 07:45 Temperature 97.8 F Pulse Rate 77 Respiratory 16 Rate Blood Pressure 119/79 O2 Sat by Pulse 99 Oximetry Medical Decision Making - Medical Decision Making Lab is refusing to run source rapid HIV despite being directed to and management getting involved. Patient is made aware of this and instructed to follow-up with employee health tomorrow. Patient is felt to be extremely low risk a central mechanism of injury. Patient is comfortable with discharge home. Disposition Clinical Impression: Hand abrasion Disposition: HOME SELF-CARE Instructions (If sedation given, give patient instructions): Abrasion (ED), Needle Stick Injuries (ED) Additional Instructions: Keep area clean and dry. Keep area protected at work. Please follow-up with employee health tomorrow for further results and recommendations. Return for illness, hand problems, worsening symptoms or other concerns. Is patient prescribed a controlled substance at d/c from ED?: No Referrals: Sal He DO [Primary Care Provider] - 1-2 days Time of Disposition: 10:45
[2020-10-21 10:52] VITALS: BP 135/74; PULSE 70; RESP 18
== END 2020-10-21 10:50 | disposition home or self-care (01) ==
LOC: EC 07:43
DX: S60.511A Abrasion of right hand, initial encounter (principal); E78.5 Hyperlipidemia, unspecified; E07.9 Disorder of thyroid, unspecified; E06.3 Autoimmune thyroiditis; F17.200 Nicotine dependence, unspecified, uncomplicated; Z79.890 Hormone replacement therapy; Z79.899 Other long term (current) drug therapy; Z91.040 Latex allergy status; Z91.041 Radiographic dye allergy status; Z91.048 Other nonmedicinal substance allergy status; Z88.8 Allergy status to other drugs, medicaments and biological substances; Z98.890 Other specified postprocedural states; W46.0XXA Contact with hypodermic needle, initial encounter; Y92.69 Other specified industrial and construction area as the place of occurrence of the external cause; Y99.0 Civilian activity done for income or pay
CPT/HCPCS: 99282

== ENCOUNTER 2023-03-06 08:34 | Day surgery (SDC) | payer BC, MEDICAID ==
[~2023-03-06 08:34] MED LIST changes: -DEXAMETHASONE SOD PHOSPHATE 10 MG/ML 1 ML VIAL IV ONE; +DEXAMETHASONE SOD PHOSPHATE 4 MG/ML 1 ML VIAL IV ONE; -HEPARIN SODIUM,PORCINE 5,000 UNIT/ML 1 ML VIAL SQ ONE; -LIDOCAINE 1% (10MG/ML) FOR IV START INTRADERMA PRN; +MIDAZOLAM 2 MG/2 ML VIAL IV PRN; +SCOPOLAMINE 1 MG/72 HR PATCH TRANSDERM ONE; -SCOPOLAMINE 1.5MG/72HR PATCH TRANSDERM ONE
[2023-03-06] MEDS ORDERED: MIDAZOLAM 2 MG/2 ML VIAL IVP ONE (09:27)
[2023-03-06 09:37] VITALS: RESP 16
--- NOTE | 2023-03-06 09:39 | P.ANPRN ---
Procedure Note - Anesthesia - Nerve Block Performed Left Popliteal Single Time Out Performed: Yes ([id number]) Date of Procedure: 03/06/23 Procedure Start Time: : Procedure Stop Time: : Location of Patient: PreOp Indication: Acute Post-Operative Pain, Requested by Surgeon Sedation Type: Sedate with meaningful contact maintained Preparation: Sterile Prep, Sterile Dressing Position: Right Lateral Catheter: None Needle Types: Pajunk Needle Gauge: 21 Ultrasound used to visualize needle placement: Yes Ultrasound used to observe medication spread: Yes Injectate: 0.5% Ropivacaine (see comment for volume) (21ml of block solution containing 20 ML of 0.5% ropivacaine mixed with 4 of dexamethasone) Blood Aspirated: No Pain Paresthesia on Injection Noted: No Resistance on Injection: Normal Image Stored and Saved: Yes Events: Uneventful and Well Tolerated
[2023-03-06] MEDS ORDERED: PROPOFOL 10 MG/ML 20 ML VIAL IV ONE (10:47)
[2023-03-06] MEDS ORDERED: LIDOCAINE 2% INJ 20 MG/ML (2 ML VIAL) ONE (10:47)
[2023-03-06] MEDS ORDERED: MIDAZOLAM 2 MG/2 ML VIAL ONE (10:47)
[2023-03-06] MEDS ORDERED: fentaNYL (PF) 50 MCG/ML 2 ML AMP ONE (10:47)
[2023-03-06] MEDS ORDERED: SODIUM CHLORIDE 0.9% (PF) 10 ML VIAL ONE (10:47)
[2023-03-06] MEDS ORDERED: DEXAMETHASONE SOD PHOSPHATE 4 MG/ML 1 ML VIAL ONE (10:47)
[2023-03-06] MEDS ORDERED: ROPIVACAINE 5 MG/ML 30 ML VIAL ONE (10:47)
[2023-03-06] MEDS ORDERED: PHENYLEPHRINE-0.9% NACL SYG 1,000 MCG/10 ML SYRINGE ONE (10:47)
--- NOTE | 2023-03-06 11:36 | P.OP ---
Date of Procedure: 03/06/23 Preoperative Diagnosis: Displaced fifth metatarsal fracture left foot Postoperative Diagnosis: Same Procedure(s) Performed: Open reduction with internal fixation left fifth metatarsal fracture Implants: 4.5 mm x 45 mm [facility] Stokes' fracture screw Anesthesia: ALEXY Surgeon: Truman White Estimated Blood Loss (ml): 0 Pathology: none sent Condition: stable Disposition: PACU Description of Procedure: Prior to the patient being brought to the operative room, anesthesia administered a nerve block and left lower extremity. The patient was then brought into the operating room and placed on table supine position. Timeout was taken to confirm correct patient identifiers, correct laterality of surgery, and correct procedure. Once all staff in the room were in agreement with the timeout, the patient was induced and placed under general anesthesia. A well- padded tourniquet was placed on the left ankle and then the left foot was prepped and draped in usual manner. The left foot was exsanguinated and the tourniquet inflated to 250 mmHg. Utilizing fluoroscopic guidance a metallic marker was used to for incision planning. The markers placed approximately 2 cm proximal to the fifth metatarsal base. A small linear incision was made and bluntly dissected through the soft tissue to the base of the fifth metatarsal. The guidewire utilized for the drill and tap was then placed at the tip of the styloid process of the fifth metatarsal. It was slowly advanced to the base until the wire was near the fracture site. Fluoroscopy was then used to confirm that the wire place was in the medullary canal both on the AP, oblique,and lateral views. Once that was confirmed the wire was in the proper position, it was advanced to secondary curvature. Again fluoroscopy was used to confirm that the wire was in proper position. Drilling was then performed to the end of the wire. Depth gauge determined that a 45 mm screw would be appropriate. The tap was inserted and tapped to the into the wire. The tap wire were removed and then the screw inserted and advanced until the head engaged the cortex of the proximal fifth metatarsal and the threads were distal to the fracture line. Final fluoroscopic imaging showed that the screw was well positioned and the medullary canal both on the AP, oblique and lateral views. The wound is thoroughly irrigated with antibiotic saline. The skin was closed with 3-0 nylon. Nonadherent gauze and a dry sterile dressing were applied to left foot. The tourniquet was released and capillary refill return to all digits on the left foot. The patient was then placed in a fracture boot with ankle neutral position. Anesthesia was reversed and the patient was taken recovery with vital signs stable.
[2023-03-06 11:41] VITALS: TEMP 97
[2023-03-06 13:21] VITALS: BP 132/77; PULSE 68
== END 2023-03-06 13:31 | disposition home or self-care (01) ==
LOC: OR 08:34
PROVIDERS: ATTEND Podiatrist
DX: S92.352A Displaced fracture of fifth metatarsal bone, left foot, initial encounter for closed fracture (principal); G89.18 Other acute postprocedural pain; F17.200 Nicotine dependence, unspecified, uncomplicated; G40.909 Epilepsy, unspecified, not intractable, without status epilepticus; K21.9 Gastro-esophageal reflux disease without esophagitis; Z88.5 Allergy status to narcotic agent; Z88.8 Allergy status to other drugs, medicaments and biological substances; Z91.040 Latex allergy status; Z68.33 Body mass index [BMI] 33.0-33.9, adult; Z90.49 Acquired absence of other specified parts of digestive tract; Z98.890 Other specified postprocedural states
CPT/HCPCS: 28485; 64450; J2250; J1100; J0690; J2405

== ENCOUNTER → 2023-03-12 | Outpatient (CLI) | payer BC ==
--- NOTE | 2023-03-12 11:21 | US ---
EXAMINATION TYPE: US venous doppler duplex LE LT DATE OF EXAM: 03/12/2023 10:30 AM COMPARISON: NONE CLINICAL HISTORY: I80.9 PHLEBITIS AND THROMBOPHLEBITIS OF UNSPECIFIE. left leg pain SIDE PERFORMED: Left TECHNIQUE: The lower extremity deep venous system is examined utilizing real time linear array sonog julissa with graded compression, doppler sonography and color-flow sonography. VESSELS IMAGED: Common Femoral Vein Deep Femoral Vein Greater Saphenous Vein * Femoral Vein Popliteal Vein Small Saphenous Vein * Proximal Calf Veins (* superficial vessels) Left Leg: Positive for DVT Popliteal Vein IMPRESSION: Positive deep vein tendinosis of the left popliteal vein. Ordering provider was notified.
== END | disposition home or self-care (01) ==
LOC: RADUSWWP 10:28
PROVIDERS: ATTEND Podiatrist
DX: S92.355D Nondisplaced fracture of fifth metatarsal bone, left foot, subsequent encounter for fracture with routine healing (principal); I82.432 Acute embolism and thrombosis of left popliteal vein; F17.210 Nicotine dependence, cigarettes, uncomplicated; Z48.89 Encounter for other specified surgical aftercare

== ENCOUNTER 2023-04-25 15:02 | Observation (INO) | payer BC ==
[2023-04-25] MEDS ORDERED: diphenhydrAMINE 50 MG/ML 1 ML VIAL IVP STA (15:40)
[2023-04-25] MEDS ORDERED: methylPREDNISolone SOD SUCCI 125 MG/2 ML VIAL IV STA (15:40)
[2023-04-25] MEDS ORDERED: FAMOTIDINE 20 MG/2 ML VIAL IV STA (15:40)
--- NOTE | 2023-04-25 15:45 | ED ---
General Adult HPI - General Chief complaint: Extremity Problem,Nontraumatic Stated complaint: Pain in left leg Time Seen by Provider: 04/25/23 15:17 Source: patient, RN notes reviewed Mode of arrival: ambulatory Limitations: no limitations - History of Present Illness Initial comments: Patient is a pleasant 53-year-old female presenting to the emergency department with concern with left Swelling and discomfort. Onset of symptoms was a past few days. Patient does have history of DVT just over a month ago following orthopedic procedure. Patient did finish her started back about this and has been off this for almost 2 weeks. Patient states discomfort is somewhat similar however does feel a little bit higher. Patient questions if she may be slightly short of breath. He should states she has had some increased stress however and wonders if it is just related to that. No chest pain. No fever. - Related Data Home Medications Medication Instructions Recorded Confirmed Ibuprofen [Motrin] 800 mg PO Q8HR PRN 03/06/23 03/06/23 Levothyroxine Sodium [Synthroid] 112 mcg PO DAILY 03/06/23 03/06/23 Previous Rx's Medication Instructions Recorded Acetaminophen Tab [Tylenol Tab] 1,000 mg PO Q6HR PRN #30 tablet 09/07/20 HYDROcodone/APAP 5-325MG [Morning Sun 1 tab PO Q6HR PRN #14 tab 03/06/23 5-325] Allergies Allergy/AdvReac Type Severity Reaction Status Date / Time Iodinated Contrast Media Allergy Swelling Verified 04/25/23 15:15 [Iodinated Contrast Media - IV Dye] iodine Allergy Swelling Verified 04/25/23 15:15 latex Allergy Rash/Hives Verified 04/25/23 15:15 phenobarbital Allergy Unknown Verified 04/25/23 15:15 Review of Systems ROS Statement: Those systems with pertinent positive or pertinent negative responses have been documented in the HPI. ROS Other: All systems not noted in ROS Statement are negative. Constitutional: Denies: fever, chills Eyes: Denies: eye pain ENT: Denies: ear pain Respiratory: Reports: as per HPI Cardiovascular: Denies: chest pain Endocrine: Denies: as per HPI Genitourinary: Denies: dysuria Skin: Reports: as per HPI Past Medical History Past Medical History: Deep Vein Thrombosis (DVT), Hyperlipidemia, Thyroid Disorder Additional Past Medical History / Comment(s): ,HX OF SEIZURE APPROX. 38 YRS AGO (NO MEDS), ENVIRONMENTAL ALLERGIES, HX OF GRAVES DISEASE & HASHIMOTOS-MONITORED BY DR. HE. History of Any Multi-Drug Resistant Organisms: None Reported Past Surgical History: Section, Cholecystectomy, Orthopedic Surgery, Uterine Ablation Additional Past Surgical History / Comment(s): NOVASURE., rotator cuff right Past Anesthesia/Blood Transfusion Reactions: Motion Sickness, Postoperative Nausea & Vomiting (PONV) Additional Past Anesthesia/Blood Transfusion Reaction / Comment(s): VERTIGO. no blood tx hx Past Psychological History: No Psychological Hx Reported Smoking Status: Current every day smoker Past Alcohol Use History: None Reported Past Drug Use History: None Reported - Past Family History Mother Family Medical History: COPD, CVA/TIA, Hypertension Father Family Medical History: Deep Vein Thrombosis (DVT) Additional Family Medical History / Comment(s): irreg heartrate General Exam Limitations: no limitations General appearance: alert, in no apparent distress Head exam: Present: normocephalic Eye exam: Present: normal appearance Neck exam: Present: normal inspection Respiratory exam: Present: normal lung sounds bilaterally. Absent: respiratory distress Cardiovascular Exam: Present: regular rate, normal rhythm Expanded Peripheral pulses: 2+: Posterior Tibialis (R), Posterior Tibialis (L), Dorsalis Pedis (R), Dorsalis Pedis (L) GI/Abdominal exam: Present: soft. Absent: tenderness Extremities exam: Present: calf tenderness (Mild left sided as well as mild left lower hamstring region), other (Minimal left calf swelling) Neurological exam: Present: alert. Absent: motor sensory deficit Psychiatric exam: Present: normal affect, normal mood Skin exam: Present: normal color Course Vital Signs 04/25/23 04/25/23 15:09 18:43 Temperature 98.8 F Pulse Rate 97 84 Respiratory 20 18 Rate Blood Pressure 151/98 143/86 O2 Sat by Pulse 100 98 Oximetry EKG Findings - EKG Results: EKG: interpreted by ERMD, sinus rhythm, normal axis, normal QRS, normal ST/T Medical Decision Making - Medical Decision Making Was pt. sent in by a medical professional or institution (, PA, KNITTING TEACHER, urgent care, hospital, or care home...) When possible be specific @ -No Did you speak to anyone other than the patient for history (EMS, parent, family, police, friend...)? What history was obtained from this source @ -Family is present and helps provide history including recent surgery Did you review nursing and triage notes (agree or disagree)? Why? @ -I reviewed and agree with nursing and triage notes Were old charts reviewed (outside hosp., previous admission, EMS record, old EKG, old radiological studies, urgent care reports/EKG's, care home records)? Report findings @ -Previous ultrasound report reviewed Differential Diagnosis (chest pain, altered mental status, abdominal pain women, abdominal pain men, vaginal bleeding, weakness, fever, dyspnea, syncope, headache, dizziness, GI bleed, back pain, seizure, CVA, palpatations, mental health)? @ -Differential Dyspnea: Coronary syndrome, arrhythmia, tamponade, asthma, COPD, pulmonary embolism, p neumonia, pneumothorax, pulmonary effusion, anaphylaxis, diabetic ketoacidosis, flailed chest, pulmonary contusion, diaphragmatic rupture, anemia, neuromuscular, this is not meant to be an all-inclusive list. EKG interpreted by me (3pts min.). @ -As above X-rays interpreted by me (1pt min.). @ -None done CT interpreted by me (1pt min.). @ -Report reviewed. Case was discussed with radiologist U/S interpreted by me (1pt. min.). @ -For reviewed. Case was discussed with radiologist What testing was considered but not performed or refused? (CT, X-rays, U/S, labs)? Why? @ -None What meds were considered but not given or refused? Why? @ -None Did you discuss the management of the patient with other professionals (professionals i.e. , PA, KNITTING TEACHER, lab, RT, psych nurse, social media intern, land planner, teacher, mail officer, case consultant)? Give summary @ -I did discuss radiology findings with both radiologist. I also discuss case with Dr. Diego who will admit coming Dr. He. I did also discuss the case with Dr. Phillips will consult with pulmonary. Was smoking cessation discussed for >3mins.? @ -No Was critical care preformed (if so, how long)? @ -30 minutes critical care time Were there social determinants of health that impacted care today? How? (Homelessness, low income, unemployed, alcoholism, drug addiction, transportation, low edu. Level, literacy, decrease access to med. care, halfway, rehab)? @ -No Was there de-escalation of care discussed even if they declined (Discuss DNR or withdrawal of care, Hospice)? DNR status @ -No What co-morbidities impacted this encounter? (DM, HTN, Smoking, COPD, CAD, Cancer, CVA, ARF, Chemo, Hep., AIDS, mental health diagnosis, sleep apnea, morbid obesity)? @ -History of recent DVT however not anticoagulated Was patient admitted / discharged? Hospital course, mention meds given and route, prescriptions, significant lab abnormalities, going to OR and other pertinent info. @ -Patient reevaluated. Patient is updated. Patient started on heparin. Patient will be admitted with pulmonary consult. Undiagnosed new problem with uncertain prognosis? @ -No Drug Therapy requiring intensive monitoring for toxicity (Heparin, Nitro, Insulin, Cardizem)? @ -Patient will need monitoring for heparin drip Were any procedures done? @ -No Diagnosis/symptom? @ -Pulmonary embolism, DVT Acute, or Chronic, or Acute on Chronic? @ -Acute, acute Uncomplicated (without systemic symptoms) or Complicated (systemic symptoms)? @ -default Side effects of treatment? @ -No Exacerbation, Progression, or Severe Exacerbation? @ -No Poses a threat to life or bodily function? How? (Chest pain, [place], [place], pneumonia, PE, COPD, DKA, ARF, appy, cholecystitis, CVA, Diverticulitis, Homicidal, Suicidal, threat to staff... and all critical care pts) @ -Poses a threat to life based of potential hypoxia and cardiac strain - Lab Data Result diagrams: 04/25/23 16:11 04/25/23 16:11 Lab Results 04/25/23 04/25/23 04/25/23 Range/Units 16:11 16:11 16:11 WBC 9.2 (3.8-10.6) k/uL RBC 4.86 (3.80-5.40) m/uL Hgb 14.6 (11.4-16.0) gm/dL Hct 43.8 (34.0-46.0) % MCV 90.1 (80.0-100.0) fL MCH 30.0 (25.0-35.0) pg MCHC 33.3 (31.0-37.0) g/dL RDW 13.1 (11.5-15.5) % Plt Count 331 (150-450) k/uL MPV 7.9 Neutrophils % 67 % Lymphocytes % 25 % Monocytes % 4 % Eosinophils % 2 % Basophils % 0 % Neutrophils # 6.2 (1.3-7.7) k/uL Lymphocytes # 2.3 (1.0-4.8) k/uL Monocytes # 0.4 (0-1.0) k/uL Eosinophils # 0.2 (0-0.7) k/uL Basophils # 0.0 (0-0.2) k/uL PT 9.9 (9.0-12.0) sec INR 0.9 (<1.2) APTT 25.0 (22.0-30.0) sec Sodium 140 (137-145) mmol/L Potassium 3.9 (3.5-5.1) mmol/L Chloride 102 (98-107) mmol/L Carbon Dioxide 30 (22-30) mmol/L Anion Gap 8 mmol/L BUN 9 (7-17) mg/dL Creatinine 0.72 (0.52-1.04) mg/dL Est GFR (CKD-EPI)AfAm >90 (>60 ml/min/1.73 sqM) Est GFR (CKD-EPI)NonAf >90 (>60 ml/min/1.73 sqM) Glucose 96 (74-99) mg/dL Calcium 9.7 (8.4-10.2) mg/dL Magnesium 1.7 (1.6-2.3) mg/dL Total Bilirubin 0.5 (0.2-1.3) mg/dL AST 27 (14-36) U/L ALT 28 (4-34) U/L Alkaline Phosphatase 91 (38-126) U/L Troponin I (0.000-0.034) ng/mL Total Protein 7.8 (6.3-8.2) g/dL Albumin 4.7 (3.5-5.0) g/dL 04/25/23 Range/Units 16:11 WBC (3.8-10.6) k/uL RBC (3.80-5.40) m/uL Hgb (11.4-16.0) gm/dL Hct (34.0-46.0) % MCV (80.0-100.0) fL MCH (25.0-35.0) pg MCHC (31.0-37.0) g/dL RDW (11.5-15.5) % Plt Count (150-450) k/uL MPV Neutrophils % % Lymphocytes % % Monocytes % % Eosinophils % % Basophils % % Neutrophils # (1.3-7.7) k/uL Lymphocytes # (1.0-4.8) k/uL Monocytes # (0-1.0) k/uL Eosinophils # (0-0.7) k/uL Basophils # (0-0.2) k/uL PT (9.0-12.0) sec INR (<1.2) APTT (22.0-30.0) sec Sodium (137-145) mmol/L Potassium (3.5-5.1) mmol/L Chloride (98-107) mmol/L Carbon Dioxide (22-30) mmol/L Anion Gap mmol/L BUN (7-17) mg/dL Creatinine (0.52-1.04) mg/dL Est GFR (CKD-EPI)AfAm (>60 ml/min/1.73 sqM) Est GFR (CKD-EPI)NonAf (>60 ml/min/1.73 sqM) Glucose (74-99) mg/dL Calcium (8.4-10.2) mg/dL Magnesium (1.6-2.3) mg/dL Total Bilirubin (0.2-1.3) mg/dL AST (14-36) U/L ALT (4-34) U/L Alkaline Phosphatase (38-126) U/L Troponin I <0.012 (0.000-0.034) ng/mL Total Protein (6.3-8.2) g/dL Albumin (3.5-5.0) g/dL Critical Care Time Critical Care Time: Yes Total Critical Care Time: 32 Disposition Clinical Impression: Deep vein thrombosis (DVT) of lower extremity, Pulmonary embolism Disposition: [facility] Condition: Serious Is patient prescribed a controlled substance at d/c from ED?: No Referrals: Sal He DO [Primary Care Provider] - 1-2 days Time of Disposition: 19:17
[2023-04-25 16:22] LABS: Basophils % (A) 0 %; Eosinophils # (A) 0.2 k/uL (0-0.7); Eosinophils % (A) 2 %; HCT 43.8 % (34.0-46.0); HGB 14.6 gm/dL (11.4-16.0); Lymphocytes # (A) 2.3 k/uL (1.0-4.8); Lymphocytes % (A) 25 %; MCHC 33.3 g/dL (31.0-37.0); MCV 90.1 fL (80.0-100.0); Mean Platelet Volume 7.9; Monocytes # (A) 0.4 k/uL (0-1.0); Monocytes % (A) 4 %; Neutrophils # (A) 6.2 k/uL (1.3-7.7); Neutrophils % (A) 67 %; Platelet Count 331 k/uL (150-450); RBC 4.86 m/uL (3.80-5.40); RDW 13.1 % (11.5-15.5); WBC 9.2 k/uL (3.8-10.6)
[2023-04-25 16:30] LABS: INR 0.9 (<1.2); Prothrombin Time 9.9 sec (9.0-12.0)
[2023-04-25 16:40] LABS: ALT 28 U/L (4-34); AST 27 U/L (14-36); African American GFR (CKD) >90 (>60 ml/min/1.73 sqM); Albumin 4.7 g/dL (3.5-5.0); Alkaline Phosphatase 91 U/L (38-126); Anion Gap 8 mmol/L; Blood Urea Nitrogen 9 mg/dL (7-17); Calcium 9.7 mg/dL (8.4-10.2); Carbon Dioxide 30 mmol/L (22-30); Chloride 102 mmol/L (98-107); Glucose 96 mg/dL (74-99); Magnesium 1.7 mg/dL (1.6-2.3); Non-African American GFR(CKD) >90 (>60 ml/min/1.73 sqM); Potassium 3.9 mmol/L (3.5-5.1); Sodium 140 mmol/L (137-145); Total Bilirubin 0.5 mg/dL (0.2-1.3); Total Protein 7.8 g/dL (6.3-8.2)
--- NOTE | 2023-04-25 17:22 | US ---
EXAMINATION TYPE: US venous doppler duplex LE LT DATE OF EXAM: 04/25/2023 4:57 PM COMPARISON: US 202203/12/2023. CLINICAL INDICATION: Female, 53 years old with history of swelling; Left leg swelling, history of DVT SIDE PERFORMED: Left TECHNIQUE: The lower extremity deep venous system is examined utilizing real time linear array sonog julissa with graded compression, doppler sonography and color-flow sonography. VESSELS IMAGED: Common Femoral Vein Deep Femoral Vein Greater Saphenous Vein * Femoral Vein Popliteal Vein Small Saphenous Vein * Proximal Calf Veins (* superficial vessels) Left Leg: Positive for DVT mid femoral vein through proximal calf veins. IMPRESSION: Positive for DVT mid femoral vein through proximal calf veins. Which has mildly increased from prior on 03/12/2023 where it was just the popliteal vein. Findings communicated to Dr. Gian Stokes DO on 04/25/2023 5:[address] Guy Hylton.
[2023-04-25] MEDS ORDERED: HEPARIN SODIUM 1,000 UN/ML (10ML VL) IV ONE (19:12)
[2023-04-25] MEDS ORDERED: HEPARIN SODIUM 1,000 UN/ML (10ML VL) IV PRN (19:12)
--- NOTE | 2023-04-25 19:15 | CT ---
EXAMINATION TYPE: CT angio chest CT DLP: 566.1 mGycm, Automated exposure control for dose reduction was used. DATE OF EXAM: 04/25/2023 6:11 PM COMPARISON: None. CLINICAL INDICATION:Female, 53 years old with history of dyspnea, dvt HO; SOB with prior blood clots TECHNIQUE/CONTRAST: CTA scan of the thorax is performed with IV Contrast, patient injected with 80 cc mL of Isovue 370, p ulmonary embolism protocol. MIP images are created and reviewed. FINDINGS: Pulmonary Artery: Filling defect is noted in the main pulmonary artery struggling the bifurcation of the left and right pulmonary arteries (series 501, image 50). Clot burden propagates distally into th e right main pulmonary artery as well as segmental and subsegmental branches (series 501, image 65). Small clot burden propagates into the segmental and subsegmental branches of the left upper lobe pulm onary arteries. Lungs/Pleura: 5 mm ground glass nodule in the right middle lobe (series 506, image 53). Right lower l obe pulmonary nodule measures 8 mm (series 506, image 90). Additional peripheral pulmonary nodules ar e noted at (series 506, image 79 and 73). No focal airspace consolidation. No pneumothorax or pleural effusion. Airway: Large airways are patent. Heart: Heart is within normal limits for size. There is straightening of the intraventricular septum concerning for early right heart strain. No pericardial effusion. Vasculature: No evidence of aortic aneurysm. Mediastinum: No gross evidence of adenopathy. Musculoskeletal: No acute osseous abnormalities Soft Tissues: Unremarkable. Lower neck: No significant findings. Upper Abdomen: Small amount of contrast is refluxing into the IVC. Findings communicated to Dr. Gian Stokes DO on 04/25/2023 7:[address] Darlin Cortez. IMPRESSION: 1. Pulmonary embolism straddling the right and left main pulmonary artery bifurcation with clot burde n propagating predominantly into the right main pulmonary artery and distal branches. Small left dist al pulmonary artery clot burden. Flattening of the interventricular septum is concerning for early he art strain. 2. Right lower lobe pulmonary nodule, recommendation is for CT follow-up in 6-12 months with consider ation for additional CT follow-up in 18-24 months. Additional pulmonary nodules can be followed up at that time.
[2023-04-25] MEDS ORDERED: NALOXONE 0.4 MG/ML 1 ML VIAL IV PRN (19:17)
[2023-04-25] MEDS: HEPARIN SOD,PORK IN 0.45% NACL 25,000 UNIT in 0.45% NACL 1 250ML.BAG IV SCH (19:23)
[2023-04-25] MEDS: FAMOTIDINE 20 MG TAB PO SCH (22:13)
[2023-04-26 08:10] LABS: Basophils % (A) 0 %; Eosinophils % (A) 0 %; HCT 44.2 % (34.0-46.0); HGB 14.5 gm/dL (11.4-16.0); Lymphocytes % (A) 10 %; MCHC 32.9 g/dL (31.0-37.0); Mean Platelet Volume 8.8; Monocytes # (A) 0.3 k/uL (0-1.0); Monocytes % (A) 3 %; Neutrophils % (A) 86 %; Platelet Count 328 k/uL (150-450); RBC 4.85 m/uL (3.80-5.40); RDW 13.1 % (11.5-15.5); WBC 10.5 k/uL (3.8-10.6)
[2023-04-26 08:22] LABS: African American GFR (CKD) >90 (>60 ml/min/1.73 sqM); Anion Gap 7 mmol/L; Blood Urea Nitrogen 13 mg/dL (7-17); Calcium 9.6 mg/dL (8.4-10.2); Carbon Dioxide 28 mmol/L (22-30); Chloride 104 mmol/L (98-107); Glucose 124 mg/dL (74-99); Non-African American GFR(CKD) >90 (>60 ml/min/1.73 sqM); Potassium 4.2 mmol/L (3.5-5.1); Sodium 139 mmol/L (137-145)
[2023-04-26] MEDS: FAMOTIDINE 20 MG TAB PO SCH (08:47)
[2023-04-26] MEDS ORDERED: Apixaban Starter Pk for VTE 5 MG TAB PO SCH (09:15)
[2023-04-26] MEDS ORDERED: APIXABAN 5 MG TAB PO SCH (09:35)
--- NOTE | 2023-04-26 10:08 | P.CNPUL ---
History of Present Illness Consult date: 04/26/23 Requesting physician: Jayant Whiting Reason for consult: dyspnea, cough, pulmonary embolism, DVT Chief complaint: Left leg pain, mild respiratory complaints. History of present illness: Pulmonary consult dated 04/26/2023. 53-year-old female came to the emergency room, because of concerns of left leg pain and swelling. The pain as above the knee in the left leg. She states that her history is that of having left foot surgery back on March 06. About a week after that, she is up some pain particularly in the left calf, with swelling, and was found have a DVT. She was placed on a Eliquis starter pack, for the DVT. She was to follow-up with her orthopedic surgeon. She completed his star ter pack, but apparently never started on the medication afterwards. She had a Doppler done in the emergency room, yesterday, which showed recurrent or persistent clot, left leg. In addition, because of mild respiratory complaints which she thought related to an upper respiratory tract infection, a CTA was done, which was positive. I was called by the ER physician. The patient was placed on IV heparin. She's feeling well today. No oxygen. No IV fluids, other than IV heparin. She takes no medications at home. She has been vaccinated against coronavirus. She has no major medical problems. Her father apparently did have a clotting disorder. She does not know the name of that disorder. CBC is completely normal. PTT is 102. Sodium potassium chloride CO2 anion gap BUN and creatinine are all normal. Troponins are negative 3. CT angiogram was positive for pulmonary embolism straddling the right and left main pulmonary artery bifurcation, without evidence of significant heart strain. Review of Systems REVIEW OF SYSTEMS: CONSTITUTIONAL: [Negative.] NEUROLOGIC: [ Negative.] HEENT: [ Negative.] CARDIAC: Left leg pain and swelling, above the left knee. PULMONARY: Minimal cough and congestion. GI: [Negative.] : [Negative.] RHEUMATOLOGIC: [ Negative.] IMMUNOLOGIC: [ Negative.] ENDOCRINE: [Negative. ] DERMATOLOGIC: [Negative.] Past Medical History Past Medical History: Deep Vein Thrombosis (DVT), Hyperlipidemia, Thyroid Disorder Additional Past Medical History / Comment(s): ,HX OF SEIZURE APPROX. 38 YRS AGO (NO MEDS), ENVIRONMENTAL ALLERGIES, HX OF GRAVES DISEASE & HASHIMOTOS-MONITORED BY DR. HE. History of Any Multi-Drug Resistant Organisms: None Reported Past Surgical History: Section, Cholecystectomy, Orthopedic Surgery, Uterine Ablation Additional Past Surgical History / Comment(s): NOVASURE., rotator cuff right Past Anesthesia/Blood Transfusion Reactions: Motion Sickness, Postoperative Nausea & Vomiting (PONV) Additional Past Anesthesia/Blood Transfusion Reaction / Comment(s): VERTIGO. no blood tx hx Past Psychological History: No Psychological Hx Reported Smoking Status: Current every day smoker Past Alcohol Use History: None Reported Past Drug Use History: None Reported - Past Family History Mother Family Medical History: COPD, CVA/TIA, Hypertension Father Family Medical History: Deep Vein Thrombosis (DVT) Additional Family Medical History / Comment(s): irreg heartrate Medications and Allergies Home Medications Medication Instructions Recorded Confirmed Type No Known Home Medications 04/25/23 04/25/23 History Allergies Allergy/AdvReac Type Severity Reaction Status Date / Time Iodinated Contrast Media Allergy Rash/Hives-topical Verified 04/25/23 19:36 [Iodinated Contrast Media - reaction IV Dye] iodine Allergy Rash/Hives-topical Verified 04/25/23 19:36 reaction latex Allergy Rash/Hives-topical Verified 04/25/23 19:36 reaction phenobarbital Allergy Unknown Verified 04/25/23 19:36 Childhood Physical Exam Osteopathic Statement: *. No significant issues noted on an osteopathic structural exam other than those noted in the History and Physical/Consult. Vitals: Vital Signs Temp Pulse Pulse Resp BP BP Pulse Ox 04/26/23 04:00 98.5 F 70 16 132/76 97 04/26/23 02:00 18 04/25/23 23:13 85 18 146/84 98 04/25/23 20:00 98.2 F 90 18 172/80 95 04/25/23 18:43 84 18 143/86 98 04/25/23 15:09 98.8 F 97 20 151/98 100 Intake and Output 04/25/23 04/26/23 04/26/23 22:59 06:59 14:59 Intake Total 540 606.516 569.331 Balance 540 606.516 569.331 Intake: Intake, IV Titration 126.516 89.331 Amount Heparin Sod,Pork in 0.45% 126.516 89.331 NaCl 25,000 unit In 0.45 % NaCl 1 250ml.bag @ 18 UNITS/KG/HR 18.697 mls/hr IV .[id number] [facility] Rx#: [id number] Oral [phone] Other: # Voids 2 Weight 103.873 kg No acute distress, oriented 3. No respiratory distress. Currently on room air. No conversational dyspnea. HEENT examination is grossly unremarkable. Neck supple. Full range of motion. No adenopathy thyromegaly or neck vein distention. Cardiovascular examination reveals regular rhythm rate. S1-S2 normal. No S3 or S4. No discernible murmur noted. Heart rate 70 bpm. Lungs reveal clear breath sounds. Breath sounds are equal bilaterally. No adventitious lung sounds including wheezes rhonchi or crackles. Room air saturation is 98%. Abdomen soft bowel sounds are heard. No masses or tenderness. Extremities are intact. No cyanosis, clubbing, or edema. Left thigh tenderness. Skin is without rash or lesion. Neurologic examination is brief but nonfocal. Results - Laboratory Findings CBC and BMP: 04/26/23 06:16 04/26/23 06:16 PT/INR, D-dimer PT 9.9 sec (9.0-12.0) 04/25/23 16:11 INR 0.9 (<1.2) 04/25/23 16:11 Abnormal lab findings: Abnormal Labs 04/26/23 04/26/23 04/26/23 00:56 06:16 06:16 Neutrophils # 9.0 H APTT 176.7 H* Glucose 124 H 04/26/23 06:16 Neutrophils # APTT 101.6 H* Glucose - Diagnostic Findings Chest x-ray: image reviewed CT scan - chest: image reviewed U/S of Legs: image reviewed Assessment and Plan Assessment: Persistent left lower extremity DVT, and subsequent pulmonary embolism, as the patient did not continue her Eliquis. Provoked DVT and pulmonary embolism. S/P left foot surgery, March 06, with subsequent development of a left lower extremity DVT. History of tobacco use. Family history of clotting disorder. Plan: Plan dated 04/26/2023. The patient continues on IV heparin. The patient could be converted over to the same factor X a inhibitor she was on before. She is absolutely stable, on room air, with good vital signs. Options at this point would be continued IV heparin , with discharge in the morning, and echocardiogram. Another option might be discharged later today, on her factor X a inhibitor. The patient should be treated for a full 3 months, beginning today. In addition, the patient will need a follow-up computed tomography scan in 8-10 weeks after this initial computed tomography scan. I will be happy to see her in the office after discharge. Time with Patient: Greater than 30
[2023-04-26] MEDS: HEPARIN SOD,PORK IN 0.45% NACL 25,000 UNIT in 0.45% NACL 1 250ML.BAG IV SCH (11:51)
[2023-04-26 12:20] VITALS: RESP 17
[2023-04-26 12:24] VITALS: BP 132/76; PULSE 81; TEMP 98.4
--- NOTE | 2023-04-26 16:06 | P.HPIM ---
History of Present Illness H&P Date: 04/25/23 Chief Complaint: (X swelling 53-year-old female came to the emergency room, because of concerns of left leg pain and swelling. The pain as above the knee in the left leg. She states that her history is that of having left foot surgery back on March 06. About a week after that, she is up some pain particularly in the left calf, with swelling, and was found have a DVT. She was placed on a Eliquis starter pack, for the DVT. She was to follow-up with her orthopedic surgeon. She completed his starter pack, but apparently never started on the medication afterwards. She had a Doppler done in the emergency room, yesterday, which showed recurrent or persistent clot, left leg. In addition, because of mild respiratory complaints which she thought related to an upper respiratory tract infection, a CTA was done, which was positive. I was called by the ER physician. The patient was placed on IV heparin. She's feeling well today. No oxygen. No IV fluids, other than IV heparin. She takes no medications at home. She has been vaccinated against coronavirus. She has no major medical problems. Her father apparently did have a clotting disorder. She does not know the name of that disorder. CBC is completely normal. PTT is 102. Sodium potassium chloride CO2 anion gap BUN and creatinine are all normal. Troponins are negative 3. CT angiogram was positive for pulmonary embolism straddling the right and left main pulmonary artery bifurcation, without evidence of significant heart strain. Review of Systems REVIEW OF SYSTEMS: CONSTITUTIONAL: No fever, no malaise, no fatigue. HEENT: No recent visual problems or hearing problems. Denied any sore throat. CARDIOVASCULAR: No chest pain, orthopnea, PND, no palpitations, no syncope. PULMONARY: No shortness of breath, no cough, no hemoptysis. GASTROINTESTINAL: No diarrhea, no nausea, no vomiting, no abdominal pain. NEUROLOGICAL: No headaches, no weakness, no numbness. HEMATOLOGICAL: Denies any bleeding or petechiae. GENITOURINARY: Denies any burning micturition, frequency, or urgency. MUSCULOSKELETAL/RHEUMATOLOGICAL: Denies any joint pain, swelling, or any muscle pain. ENDOCRINE: Denies any polyuria or polydipsia. The rest of the 14-point review of systems is negative. Past Medical History Past Medical History: Deep Vein Thrombosis (DVT), Hyperlipidemia, Thyroid Disorder Additional Past Medical History / Comment(s): ,HX OF SEIZURE APPROX. 38 YRS AGO (NO MEDS), ENVIRONMENTAL ALLERGIES, HX OF GRAVES DISEASE & HASHIMOTOS-MONITORED BY DR. HE. History of Any Multi-Drug Resistant Organisms: None Reported Past Surgical History: Section, Cholecystectomy, Orthopedic Surgery, Uterine Ablation Additional Past Surgical History / Comment(s): NOVASURE., rotator cuff right Past Anesthesia/Blood Transfusion Reactions: Motion Sickness, Postoperative Na usea & Vomiting (PONV) Additional Past Anesthesia/Blood Transfusion Reaction / Comment(s): VERTIGO. no blood tx hx Past Psychological History: No Psychological Hx Reported Smoking Status: Current every day smoker Past Alcohol Use History: None Reported Past Drug Use History: None Reported - Past Family History Mother Family Medical History: COPD, CVA/TIA, Hypertension Father Family Medical History: Deep Vein Thrombosis (DVT) Additional Family Medical History / Comment(s): irreg heartrate Medications and Allergies Home Medications Medication Instructions Recorded Confirmed Type Apixaban [Eliquis Starter Pack 5 - 10 mg PO DIRECTED 30 Days 04/26/23 Rx (for VTE)] #1 each Allergies Allergy/AdvReac Type Severity Reaction Status Date / Time Iodinated Contrast Media Allergy Rash/Hives-topical Verified 04/25/23 19:36 [Iodinated Contrast Media - reaction IV Dye] iodine Allergy Rash/Hives-topical Verified 04/25/23 19:36 reaction latex Allergy Rash/Hives-topical Verified 04/25/23 19:36 reaction phenobarbital Allergy Unknown Verified 04/25/23 19:36 Childhood Physical Exam Vitals: Vital Signs Temp Pulse Resp BP Pulse Ox 04/25/23 18:43 84 18 143/86 98 04/25/23 15:09 98.8 F 97 20 151/98 100 Intake and Output 04/25/23 04/25/23 04/25/23 06:59 14:59 22:59 Other: Weight 103.873 kg - Constitutional General appearance: Present: average body habitus, cooperative, no acute distress - EENT Eyes: Present: anicteric sclerae, EOMI, PERRLA, normal appearance ENT: Present: hearing grossly normal, normal oropharynx Ears: bilateral: normal - Neck Neck: Present: normal ROM. Absent: lymphadenopathy, rigidity, thyromegaly Carotids: negative: bruit present Thyroid: bilateral: normal size, negative: enlarged, nodule - Respiratory Respiratory: bilateral: CTA, negative: rales, rhonchi, wheezing - Cardiovascular Rhythm: regular Heart sounds: normal: S1, S2 Abnormal Heart Sounds: Absent: systolic murmur, diastolic murmur - Gastrointestinal General gastrointestinal: Present: normal bowel sounds, soft. Absent: distended, organomegaly, tenderness - Genitourinary Genitourinary Comment(s): deferred - Integumentary Integumentary: Present: normal turgor. Absent: jaundiced, rash, ulcer - Neurologic Neurologic: Present: CNII-XII intact. Absent: focal deficits - Musculoskeletal Musculoskeletal: Present: gait normal, strength equal bilaterally - Psychiatric Psychiatric: Present: A&O x's 3, appropriate affect, intact judgment & insight Results CBC & Chem 7: 04/26/23 06:16 04/26/23 06:16 Assessment and Plan Assessment: 1. Provoked Acute pulmonary embolism/DVT - Patient is status post left foot surgery on 03/06/2023; patient developed pain and swelling of left lower extremity week after surgery and was found to have DVT; patient was given a prescription for Eliquis which she did not fill up - Patient has been placed on IV heparin per protocol - CT angiogram does not reveal any evidence of significant heart strain - Consult pulmonary service of further recommendations; input appreciated 2. Persistent left lower extremity; related to noncompliance; patient was recently diagnosed with acute DVT left lower extremity and was placed on anticoagulation; patient has not filled up the prescription yet 3. Status post recent left foot surgery on 03/06/2023 4. Chronic tobacco use; counseling done on need for smoking cessation 5. Family history of clotting disorder DVT prophylaxis; IV heparin CODE STATUS; full code
--- NOTE | 2023-05-01 20:40 | P.DS ---
Providers Date of admission: 04/25/23 19:18 Expected date of discharge: 04/26/23 Attending physician: Jayant Whiting MD Consults: 04/25/23 19:17 Consult Physician Urgent Consulting Provider: Guy Fountain Reason/Comments: pe Do you want consulting provider notified?: Already Contacted Primary care physician: [facility] Course: 53-year-old female came to the emergency room, because of concerns of left leg pain and swelling. The pain as above the knee in the left leg. She states that her history is that of having left foot surgery back on March 06. About a week after that, she is up some pain particularly in the left calf, with swelling, and was found have a DVT. She was placed on a Eliquis starter pack, for the DVT. She was to follow-up with her orthopedic surgeon. She completed his starter pack, but apparently never started on the medication afterwards. She had a Doppler done in the emergency room, yesterday, which showed recurrent or persistent clot, left leg. In addition, because of mild respiratory complaints which she thought related to an upper respiratory tract infection, a CTA was done, which was positive. I was called by the ER physician. The patient was placed on IV heparin. She's feeling well today. No oxygen. No IV fluids, other than IV heparin. She takes no medications at home. She has been vaccinated against coronavirus. She has no major medical problems. Her father apparently did have a clotting disorder. She does not know the name of that disorder. CBC is completely normal. PTT is 102. Sodium potassium chloride CO2 anion gap BUN and creatinine are all normal. Troponins are negative 3. CT angiogram was positive for pulmonary embolism straddling the right and left main pulmonary artery bifurcation, without evidence of significant heart strain Persistent left lower extremity DVT, and subsequent pulmonary embolism, as the patient did not continue her Eliquis. Provoked DVT and pulmonary embolism. S/P left foot surgery, March 06, with subsequent development of a left lower extremity DVT. History of tobacco use. Family history of clotting disorder. Plan: Plan dated 04/26/2023. The patient continues on IV heparin. The patient could be converted over to the same factor X a inhibitor she was on before. She is absolutely stable, on room air, with good vital signs. Options at this point would be continued IV heparin, with discharge in the morning, and echocardiogram. Another option might be discharged later today, on her factor X a inhibitor. The patient should be treated for a full 3 months, beginning today. In addition, the patient will need a follow-up computed tomography scan in 8-10 weeks after this initial computed tomography scan. Patient Condition at Discharge: Serious Plan - Discharge Summary Discharge Rx Participant: No New Discharge Prescriptions: New Apixaban [Eliquis Starter Pack (for VTE)] 5 - 10 mg PO DIRECTED 30 Days #1 each Discharge Medication List Apixaban [Eliquis Starter Pack (for VTE)] 5 - 10 mg PO DIRECTED 30 Days #1 each 04/26/23 [Rx] Follow up Appointment(s)/Referral(s): Sal Goins DO [Primary Care Provider] - 1-2 days Guy Fountain DO [Doctor of Osteopathic Medicine] - 2 Weeks Patient Instructions/Handouts: Pulmonary Embolism (DC) Discharge Disposition: HOME SELF-CARE
== END 2023-04-26 15:11 | disposition home or self-care (01) ==
LOC: EC 15:02 → 3SCARD 19:18 → INTOOBSV 19:18 → 3SCARD 19:55
PROVIDERS: ADMIT Internal Medicine; ATTEND Internal Medicine
DX: I82.512 Chronic embolism and thrombosis of left femoral vein (principal); I26.99 Other pulmonary embolism without acute cor pulmonale; E78.5 Hyperlipidemia, unspecified; Z91.148 Patient's other noncompliance with medication regimen for other reason; F17.200 Nicotine dependence, unspecified, uncomplicated; Z79.890 Hormone replacement therapy; Z98.890 Other specified postprocedural states; Z88.8 Allergy status to other drugs, medicaments and biological substances; Z91.040 Latex allergy status; Z83.2 Family history of diseases of the blood and blood-forming organs and certain disorders involving the immune mechanism
CPT/HCPCS: 96366 ×2; 96376; 96365; 96375; 99291; 36415; 93005; 80053; 80048; 83735; 84484 ×2; 85025 ×2; 85610; 85730 ×2; 93971; 71275; G0378 ×2; J1200; J2930; J1644 ×2; Q9967

== ENCOUNTER → 2023-05-04 | Outpatient (CLI) | payer BC ==
--- NOTE | 2023-05-05 08:08 | MM ---
Reason for Exam: Screening (asymptomatic). Last mammogram was performed 3 year(s) and 3 month(s) ago. Patient History: Menarche at age 13. First Full-Term at age 17. Postmenopausal. Patient used Hormonal Contraceptives for 13 years. Risk Values: Mahsa 5 year model risk: 0.8%. NCI Lifetime model risk: 6.2%. Prior Study Comparison: 08/15/2010 Bilateral Screening Mammogram, [facility]. 02/03/2020 Bilateral Screening Mammogram, [facility]. Tissue Density: There are scattered fibroglandular densities. Findings: Analyzed By CAD. There is no suspicious group of microcalcifications or new suspicious mass in either breast. Overall Assessment: Benign, BI-RAD 2 Management: Screening Mammogram of both breasts in 1 year. . Patient should continue monthly self-breast exams. A clinical breast exam by your physician is recommended on an annual basis. This exam should not preclude additional follow-up of suspicious palpable abnormalities. Note on Mahsa scores and lifetime risk: 1. A Mahsa score greater than 3% is considered moderate risk. If this is the case, consider specialist referral to assess eligibility for a risk reducing agent. 2. If overall lifetime risk for the development of breast cancer is 20% or higher, the patient may qualify for future screening with alternating mammogram and breast MRI. Electronically signed and approved by: Lazaro Emery M.D. Radiologis
== END | disposition home or self-care (01) ==
LOC: RADMAMWWP 14:40
PROVIDERS: ATTEND Family Medicine
DX: Z12.31 Encounter for screening mammogram for malignant neoplasm of breast (principal); Z78.0 Asymptomatic menopausal state
CPT/HCPCS: 77063; 77067

== ENCOUNTER → 2023-06-24 | Outpatient (CLI) | payer BC ==
--- NOTE | 2023-06-24 11:58 | CT ---
EXAMINATION TYPE: CT angio chest DATE OF EXAM: 06/24/2023 COMPARISON: 04/25/2023 HISTORY: 53-year-old female [id number] EMBOLISM AND THROMBOSIS, UNSPECIFIED, DEEP VN UNSPECIFIED, F ollow up on pulmonary embolism TECHNIQUE: Contiguous axial scanning of the chest performed with IV Contrast, patient injected with 1 00, wasted 43 mL of Isovue 370. Coronal/sagittal MIP reconstructions performed. CT DLP: 629.2 mGycm Automated exposure control for dose reduction was used. FINDINGS: The heart is borderline enlarged. No pericardial effusion. No flattening of the interventricular sept um reflux of contrast into the hepatic veins. Aorta normal caliber with conventional arch vessel branching anatomy. No thoracic lymphadenopathy by size criteria. The previous bilateral pulmonary emboli including the saddle embolus appears to have cleared. There i s limitation in assessment as there is prominent breathing motion artifact. No thoracic lymphadenopathy by CT size criteria. Hazy bilateral lung densities. All diffuse bronchial wall thickening. 8 mm subpleural pulmonary nodul e posterior right base. Unchanged. 5 mm lateral right midlung pulmonary nodule, axial image 54 is unchanged. No consolidation or pleural effusion. There is underlying fatty infiltration of the liver characterized by low attenuation of the liver par enchyma. Gallbladder appears surgically absent. No osseous destructive process. IMPRESSION: 1. EXAM LIMITED DUE TO PROMINENT MOTION ARTIFACTS. NO OBVIOUS BONY EMBOLUS IS SEEN. THE PREVIOUS PULM ONARY EMBOLI INCLUDING THE SADDLE EMBOLUS APPEARS TO HAVE CLEARED. 2. Hazy densities likely representing generalized atelectasis. There is also bronchial wall thickenin g that could reflect bronchitis or asthma. 3. An 8 mm right lower lobe pulmonary nodule is unchanged for 2 months. Recommend additional 6-12 mon th follow-up to reassess. A 5 mm right midlung pulmonary nodule should be reassessed at that time as well.
== END | disposition home or self-care (01) ==
LOC: RADCTMAIN 07:50
PROVIDERS: ATTEND Internal Medicine Critical Care Medicine
DX: I82.409 Acute embolism and thrombosis of unspecified deep veins of unspecified lower extremity (principal); I26.99 Other pulmonary embolism without acute cor pulmonale; R91.1 Solitary pulmonary nodule; Z86.711 Personal history of pulmonary embolism
CPT/HCPCS: 71275; Q9967